=== PATIENT | female | born 1990 | race Caucasian/White ===

== ENCOUNTER → 2017-10-09 15:47 | Outpatient (CLI) | payer OTHER, SELFPAY ==
[2017-10-09 19:55] LABS: Chlamydia Trachomatis by PCR Negative (Negative); Neisserai gonorrhoeae by PCR Negative (Negative); Probe Check PASS; Sample Adequacy Control PASS; Specimen Processing Control PASS
[2017-10-14 13:17] LABS: HPV Reflexed? NOT INDICATED
== END ==
PROVIDERS: Visit Provider Obstetrics & Gynecology
DX: Z12.4 Encounter for screening for malignant neoplasm of cervix (principal); Z11.3 Encounter for screening for infections with a predominantly sexual mode of transmission
CPT/HCPCS: 87491; 87591; 88175; G0145

== ENCOUNTER → 2018-09-05 15:50 | Outpatient (CLI) | payer SELFPAY ==
[2018-09-05 17:35] LABS: Absolute Lymphocyte Count 2.38 X10^3/ul (0.83-4.51); Absolute Neutrophil Count 4.9 X10^3/uL (2.0-7.7); Basophil# 0.02 X10^3/uL; Basophil% 0.2 % (0-1); Eosinophil# 0.13 X10^3/uL; Eosinophils% 1.6 % (0-5); Hematocrit 40.2 % (37-47); Hemoglobin 13.5 g/dl (12.0-15.0); Lymphocyte # 2.38 X10^3/ul (4.0); Lymphocyte % 29.4 % (19-41); Mean Corp Hgb Conc 33.6 g/gl (32-36); Mean Corpuscular Hgb 28.7 pg (27.0-32.0); Mean Corpuscular Volume 85.4 fL (81-99); Mean Platelet Vol. 10.3 fl (6.2-12.0); Monocyte# 0.63 X10^3/uL; Monocyte% 7.8 % (0-10); Neutrophil # 4.92 X10^3/uL (2.7-7.7); Neutrophil % 60.8 % (47-70); Platelet Count 341 K/mm3 (150-450); Red Blood Count 4.71 M/mm3 (4.2-5.4); White Blood Count 8.1 K/mm3 (4.4-11.0)
[2018-09-05 17:39] LABS: POSITIVE COUNT NO; POSITIVE DIFFERENTIAL NO; POSITIVE MORPHOLOGY NO
[2018-09-05 17:54] LABS: ALB/GLOB Ratio 0.9 RATIO (0.9-2.4); AST(SGOT) 32 U/L (15-37); Alanine Aminotransfer ALT/SGPT 32 U/L (13-56); Albumin, Serum 3.7 g/dL (3.2-5.0); Alkaline Phosphatase 83 U/L (45-117); Anion Gap 8 (5-15); BUN 9 mg/dL (7-18); BUN/Creat Ratio 11.2 RATIO (10-20); Calcium,Total 8.7 mg/dL (8.5-10.1); Chloride 107 mmol/L (98-107); EST Glomerular Filtration Rate 91 mL/min (>60); Est Glom Filt Rate - Afr Amer 110 mL/min (>60); Globulin 3.9 g/dL (2.2-4.2); Glucose 94 mg/dL (74-106); Potassium 3.7 mmol/L (3.5-5.1); Protein, Total 7.6 g/dL (6.4-8.2); Sodium Level 142 mmol/L (136-145); Thyroid Stim Hormone (TSH) 1.69 uIU/mL (0.358-3.74)
[2018-09-09 14:04] LABS: Anti-Thyroglobulin AB < 1.0 IU/mL (0.0-0.9); Thyroglobulin, Serum Qt. 32.6 ng/mL (1.5-38.5); Thyroid Peroxidase AB 12 IU/mL (0-34); V-Zoster Virus Acute IgM < 0.91 index (0.00-0.90)
== END ==
PROVIDERS: Family Provider Family Medicine; PCP Family Medicine; Referring Provider Family Medicine; Visit Provider Family Medicine
DX: Z00.00 Encounter for general adult medical examination without abnormal findings (principal); E01.0 Iodine-deficiency related diffuse (endemic) goiter; E66.01 Morbid (severe) obesity due to excess calories
CPT/HCPCS: 36415; 80053; 84432; 84439; 84443; 85025; 86376; 86787; 86800

== ENCOUNTER → 2018-09-10 14:13 | Outpatient (CLI) | payer SELFPAY ==
--- NOTE | 2018-09-10 14:15 | US_ITS ---
STUDY: THYROID ULTRASOUND REASON FOR EXAM: Female, 27 years old. Thyromegaly TECHNIQUE: Ultrasound evaluation of the thyroid was performed with real-time and static lu-scale imaging. COMPARISON: None. FINDINGS: RIGHT LOBE: Right thyroid 45 x 19 x 15 mm, homogeneous echotexture, normal size, normal vascularity, no nodules. LEFT LOBE: Left thyroid 44 x 16 x 14 mm, homogeneous echotexture, normal size, normal vascularity, no nodules. ISTHMUS: The isthmus is normal. US/Thyroid IMPRESSION: Normal ultrasound examination of the thyroid. Electronically Signed: Jerel Brenner MD at 15:41 EDT Tel , Service support ,
== END ==
PROVIDERS: Family Provider Family Medicine; PCP Family Medicine; Referring Provider Family Medicine; Visit Provider Family Medicine
DX: Z00.00 Encounter for general adult medical examination without abnormal findings (principal); E01.0 Iodine-deficiency related diffuse (endemic) goiter
CPT/HCPCS: 76536

== ENCOUNTER → 2018-11-16 13:46 | Outpatient (CLI) | payer SELFPAY ==
[2018-11-21 12:15] LABS: HPV Reflexed? NOT INDICATED
== END ==
PROVIDERS: Visit Provider Obstetrics & Gynecology
DX: Z12.4 Encounter for screening for malignant neoplasm of cervix (principal)
CPT/HCPCS: 87624; 88175; G0145

== ENCOUNTER 2021-05-06 11:50 | Outpatient (CLI) | payer BC, SELFPAY ==
[2021-05-06 12:25] LABS: Hemoglobin A1c 5.4 % (3.8-5.6)
[2021-05-06 14:00] LABS: Estradiol 102.3 pg/mL; Follicle Stimulating Hormone 2.8 mIU/mL; Luteinizing Hormone 5.9 mIU/mL; Prolactin 13.9 ng/mL; T4 Free Direct 1.04 ng/dL (0.76-1.46); Thyroid Stim Hormone (TSH) 2.57 uIU/mL (0.358-3.74)
[2021-05-09 13:34] LABS: Testosterone Free 5.5 pg/mL (0.0-4.2)
[2021-05-10 20:20] LABS: HPV Reflexed? NOT INDICATED
[2021-05-12 17:53] LABS: 17-Hydroxyprogesterone 151 ng/dL (.)
== END 2021-05-06 23:59 | disposition home or self-care (01) ==
LOC: WOBLAB 11:51
PROVIDERS: Visit Provider Student in an Organized Health Care Education/Training Program
DX: Z12.4 Encounter for screening for malignant neoplasm of cervix (principal); N92.6 Irregular menstruation, unspecified
CPT/HCPCS: 36415; 82627; 82670; 83001; 83002; 83036; 83498; 84146; 84402; 84439; 84443; 88175; 82626; G0145

== ENCOUNTER → 2021-09-20 | Outpatient (CLI) | payer BC, SELFPAY ==
[2021-09-27 12:08] LABS: Testosterone, Free 1.58 ng/dL (0.10-0.85); Testosterone, Total 45 ng/dL (13-71)
[2021-09-28 14:17] LABS: Testosterone, % Free 3.52 % (0.50-2.80)
== END | disposition home or self-care (01) ==
LOC: WOBLAB 15:05
PROVIDERS: Visit Provider Student in an Organized Health Care Education/Training Program
DX: R87.1 Abnormal level of hormones in specimens from female genital organs (principal); N92.6 Irregular menstruation, unspecified
CPT/HCPCS: 36415; 84402; 84403

== ENCOUNTER → 2023-03-09 | Outpatient (CLI) | payer OTHER, SELFPAY ==
--- OUTSIDE RECORDS SUMMARY | 2023-03-09 08:46 | XMS RPT_ITS | CCD ---
Author Name Unknown Address [address] [place] [address] Organization [facility] Care Team Providers Care Educational Institution Curator Name Role Phone Unavailable Primary Care Provider UnavailGEORGETTE Parmar Attending Unavailable GAIL, GEORGETTE Referring Unavailable GEORGETTE CARVER Referring Unavailable GEORGETTE CARVER Attending Unavailable Problems Problem Classification Problem Date Documented Da te Episodic/Chronic Menstrual disorders (3 sources) Irregular periods; Translations: [Irregular menstruation, unspecified] Onset: 01-20-2023 01-20-2023 Chronic Other screening for suspected conditions (not mental disorders or infectious disease) (2 sources) Cancer cervix screening status; Translations: [Encounter for screening for malignant neoplasm of cervix] 01-20-2023 Episodic Results Test Name Value Interpretation Reference Range Facil ity Vital Signs Date Time Vital Sign Value Performing Clinician Traci maria 01-20-2023 07:13-0500 Body height 162.6 cm Georgette Carver APRN.CNP Work Phone: [facility] 01-20-2023 07:13-0500 Body weight 118.84 kg Georgette Carver APRN.CNP Work Phone: [facility] 01-20-2023 07:13-0500 Diastolic blood pressure 80 mm[Hg] Georgette Carver APRN.CNP Work Phone: [facility] 01-20-2023 07:13-0500 Systolic blood pressure 122 mm[Hg] Georgette Carver APRN.CNP Work Phone: [facility] Encounters Encounter Date Encounter Type Care Provider Facility Start: 02-23-2023 End: 02-23-2023 ambulatory GEORGETTE CARVER Facility:[facility] Start: 02-01-2023 Telephone encounter Georgette musa APRN.CNP Work Phone: OB/Gynecology Start: 01-23-2023 Telephone encounter Georgette musa APRN.CNP Work Phone: OB/Gynecology Start: 01-20-2023 End: 01-21-2023 ambulatory GEORGETTE CARVER Facility:[facility] Start: 01-20-2023 End: 01-20-2023 ambulatory GEORGETTE CARVER Facility:[facility] Start: 01-20-2023 End: 01-20-2023 Subsequent hospital visit by physician [facility] Work Phone: Radiology Procedures Date Procedure Procedure Detail Performing Clinician Start: 01-20-2023 Iadna human papillom avirus high-risk types Georgette Carver APRN.CNP Work Phone: Plan of Treatment Date Care Activity Detail Author Start: 01-21-2028 HPV Testing HPV Testing [facility] Start: 01-21-2028 Pap Testing Pap Testing [facility] Start: 09-11-2023 Urine microalbumin profile DTaP,Tdap,Td Vaccine (3 - Td or Tdap) [facility] Start: 01-20-2023 End: 04-21-2023 Choriogonadotropin.beta subunit [Units/volume] in Serum or Plasma [facility] Work Phone: Payers Date Payer Category Payer Unknown MMO [employer] PPO [id number] 2022-Present [phone] [address] [place] [address] PPO [id number] 2022 Unknown [id number] Social History Date Type Detail Facility Start: 01-20-2023 Tobacco smoking stat us WIIS Never smoked tobacco [facility] Start: 01-20-2023 Tobacco use and exposure Smoke less tobacco non-user [facility] Start: 01-20-2023 Alcohol intake Ex-drinker (finding) [facility] Start: 01-20-2023 History of Social function [facility] Start: 01-20-2023 Tobacco use panel [facility] Start: 1990 Sex Assigned At Female [facility] Start: 01-16-2023 Gender identity Identifies as female gender (finding) [facility] Start: 01-16-2023 Sexual orientation Heterosexual (prema mcdaniel) [facility] Clinical Notes 01-20-2023 to 02-23-2023 Telephone Encounter - Georgette Carver APRN.CNP - 02/01/2023 3:49 PM ESTTelephone Encounter - Ban Ford RN - 02/01/2023 2:19 PM Saba Toth RDMS - 01/20/2023 8:30 AM EST Note Date & Type Note Facility 02-23-2023 Note HNO ID: [id number] Author: Georgette Carver APRN.BUSINESS RISK ANALYST Service: ? Author Type: Nurse Practitioner Type: Progress Notes Filed: 02/23/2023 7:49 AM Note Text: Kaylan Bradley is a 32 year old female who presents for problem visit of irregular cycles/PCOS. HPI: Was seen for annual on 01/20/23, where she reported irregular cycles. Cycles are every 2-3 months. LMP was 11/07/22. Labs show elevated testosterone. Patient reports facial hair growth. No polycystic ovaries on ultrasound. Patient desires . OB History T0 L0 SAB0 IAB0 Ectopic0 Multiple0 Live Births0 Plaster Helper History LMP: 11/07/2022, Having periods Age at Menarche: Age at First : Age at Menopause: Plaster Helper History Comments: Sexual Activity: No sexual activity data on record; No partner data on record Contraception: No contraception data on record Menstrual Tracking History Flowsheet Row Office Visit from 01/20/2023 in OB/Gynecology Period Pattern Irregular Menstrual Flow Heavy PAST MEDICAL HISTORY Diagnosis Date Irregular periods PAST SURGICAL HISTORY Procedure Laterality Date NONE FAMILY HISTORY Problem Relation Age of Onset Lung Cancer Paternal Grandfather Social History Tobacco Use Smoking status: Never Smokeless tobacco: Never Vaping Use Vaping Use: Never used Substance Use Topics Alcohol use: Not Currently Drug use: Never No current outpatient medications on file. No current facility-administered medications for this visit. Allergies As of Date: 02/23/2023 (No Known Allergies) Fully Assessed 02/23/2023 REVIEW OF SYSTEMS Abdomen: No bloating, early satiety, indigestion, or increased flatulence. No abdominal pain, nausea, vomiting, diarrhea, or constipation. Bladder: No dysuria, gross hematuria, urinary frequency, urinary urgency, or incontinence. Breast: No breast lumps, nipple d/c, overlying skin changes, redness or skin retraction. Expanded ROS: N/A Allergies and current medication updated:Yes EXAM: BP 122/78 Wt 260 lb (117.9kg) LMP 11/07/2022 GENERAL: pleasant, female in no apparent distress HEENT: Normocephalic, atraumatic, mucus membranes moist, and no lesions CHEST: Normal inspiratory effort NEURO: alert and oriented x3,exam grossly non-focal EXTREMITIES: normal ASSESSMENT AND PLAN: 1. PCOS (polycystic ovarian syndrome) - ICD9: 256.4, ICD10: E28.2 (primary diagnosis) - Meets infrequent ovulation and hyperandrogenism for Rotterdam's criteria - Reviewed increased risk of obesity, high cholesterol, high blood pressure, diabetes - Discussed even 5-10% weight loss can improve cycle regulation and typically first line - Consider follow up with Radha Butler or Dr. Davalos for weight management - Has been having unprotected intercourse x7 years with no - Trial of Provera for cycle initiation (reviewed risks of amenorrhea and potential of hyperplasia) - Patient agreeable. Discussed withdrawal bleed would be cycle day 1 - Can trial home ovulation predictor kits to assist in timing of intercourse - Consider semen analysis for partner, to notify if they want to proceed - Follow up in 2 months for fertility follow up/cycle control - Consider letrozole 2. Irregular periods/menstrual cycles - ICD9: 626.4, ICD10: N92.6 - Provera rx to initiate cycles Georgette Carver APRN.CNP Medical Decision Making: Problems: Moderate: 2+ stable chronic illnesses Data: Unique test result(s) reviewed: 3+ Risk: Low: Low risk from testing/treatment Moderate: Drug management Medical Decision Making Level: 4 - Moderate [facility] 02-01-2023 Miscellaneous Notes Signed. Georgette Carver APRN.CNP Spoke with lab client services and hpv can be added once order is filed. Pending. Ban Ford, RN documented in this encounter [facility] 01-23-2023 Miscellaneous Notes Patient notified. Appointment scheduled. Karley Ann RN Just noticed she already had pelvic ultrasound. WNL. Recommend following up to discuss PCOS and plan moving forward. Please notify patient: Testosterone levels elevated. Diagnosis likely PCOS. Recommend pelvic ultrasound - please assist patient in scheduling. Also recommend follow up appointment to discuss PCOS and treatment options moving forward. Please assist in scheduling. Georgette Carver APRN.CNP documented in this encounter [facility] 01-20-2023 Note HNO ID: [id number] Author: Saba Mills RDMS Service: ? Author Type: Fire Alarm Installer Type: Progress Notes Filed: 01/20/2023 2:42 PM Note Text: Radiology Service Progress Note PATIENT NAME: Kaylan Bradley DATE OF SERVICE: January 20, 2023 TIME: 2:42 PM PATIENT IDENTITY VERIFICATION COMPLETED USING TWO (2) IDENTIFIERS: Name and Date of confirmed by patient verbally. FALL SCREENING: Has the patient had 2 falls in the last year or 1 fall with injury or currently using an Ambulatory Assistive Device (Walker, Cane, Wheelchair, Crutches, etc.)? No PATIENT GENDER DATA: Female. status: : No status: NO. PATIENT RELEVANT IMPLANT DATA REVIEWED: Not Applicable RADIOLOGY DEPARTMENT: Ultrasound PERIPHERAL IV DATA: Not applicable SIGNED BY: Saba Mills RDMS T January 20, 2023 2:42 PM [facility] 01-20-2023 Note HNO ID: [id number] Author: Haury, Georgette, ROVING TELLER.BUSINESS RISK ANALYST Service: ? Author Type: Nurse Practitioner Type: Progress Notes Filed: 01/20/2023 7:41 AM Note Text: Smoke Tester offered: Patient declinesJorge Kimbrough is a 32 year old who presents for an annual gynecologic exam with complaints, irregular bleeding for 5 years. Menses: cycles every 2-3 months for 4-5 days. One day of heavy bleeding where she is soaking a tampon every 2 hours. Contraception: none, has previously used OCP and Depo. Not preventing , but not planning HPV vaccine: No Last Pap: normal 2020, [place]. Not on file. HPV: negative . Not on file. History of abnormal pap: No Last mammogram: never Sexually active: Yes History of STDS: None Pain with intercourse: No Postcoital bleeding: No OB History T0 L0 SAB0 IAB0 Ectopic0 Multiple0 Live Births0 Plaster Helper History LMP: LMP Unknown, Having periods Age at Menarche: Age at First : Age at Menopause: Plaster Helper History Comments: Sexual Activity: No sexual activity data on record; No partner data on record Contraception: No contraception data on record Menstrual Tracking History Flowsheet Row Office Visit from 01/20/2023 in OB/Gynecology Period Pattern Irregular Menstrual Flow Heavy PAST MEDICAL HISTORY Diagnosis Date Irregular periods PAST SURGICAL HISTORY Procedure Laterality Date NONE FAMILY HISTORY Problem Relation Age of Onset Lung Cancer Paternal Grandfather SOCIAL HISTORY Social History Tobacco Use Smoking status: Never Smokeless tobacco: Never Vaping Use Vaping Use: Never used Substance Use Topics Alcohol use: Not Currently Drug use: Never REVIEW OF SYSTEMS Abdomen: No abdominal pain, nausea, vomiting, diarrhea, or constipation. No bloating, early satiety, indigestion, or increased flatulence. Bladder: No dysuria, gross hematuria, urinary frequency, urinary urgency, or incontinence. Breast: No breast lumps, nipple d/c, overlying skin changes, redness or skin retraction. Allergies and current medication updated:Yes EXAM: BP 122/80 Ht 5' 4 (1.63m) Wt 262 lb (118.8kg) BMI 44.95 kg/(m2). GENERAL: pleasant, female in no apparent distress HEENT: Normocephalic, atraumatic, mucus membranes moist, and no lesions NECK: Supple, full range of motion, no adenopathy, and thyroid normal DERMATOLOGY: Normal, without lesions, non-icteric, and non-hirsute BREAST: soft, non-tender, symmetric, no dominant mass, normal nipple-areolar complex, no lymphadenopathy, and no nipple discharge + left nipple flat/inverted. Has always been flat/inverted per patient. CHEST: Normal inspiratory effort ABDOMEN: soft, non-tender, and no masses PELVIC: external genitalia normal, normal Bartholin's glands, urethra, [place]'s glands, no vulvar lesions, no cervical lesions, good vaginal support, physiologic discharge present, normal appearing perineal body and perianal region BIMANUAL: uterus normal size, shape and consistency, no adnexal masses, and non-tender RECTOVAGINAL: deferred. NEURO: alert and oriented x3,exam grossly non-focal EXTREMITIES: normal ASSESSMENT/PLAN: 1) Health maintenance: Pap done with HPV. Nutrition, exercise and routine health maintenance exams reviewed. 2) Contraception: none. Not preventing , but not actively trying. vitamin with 800 mcg of folic acid recommended. 3) STD screening: Declined STD check. 4) Follow up one year or sooner as needed 4. Irregular menstrual bleeding - ICD9: 626.4, ICD10: N92.6 - 5 years of spaced out menses - Labs and pelvic ultrasound ordered - TESTOSTERONE TOTAL - HGB A1C - PROLACTIN BLD - TSH BLD - T4 FREE/FREE THYROX - FSH BLD - ESTRADIOL-17B BLD - US FEMALE PELVIS TRANSVAG - HCG QUANTITATIVE - To notify with results. Plan for follow up based on results. - Will likely need hormonal control to regulate menses Georgette Carver APRN.BUSINESS RISK ANALYST Medical Decision Making: Problems: Moderate: 2+ stable chronic illnesses Data: Unique test(s) ordered: 3+ Risk: Minimal: Minimal risk from testing/treatment Medical Decision Making Level: 4 - Moderate [facility] 01-20-2023 History of Presen t illness Narrative Radiology Service Progress Note PATIENT NAME: Kaylan Bradley DATE OF SERVICE: January 20, 2023 TIME: 2:42 PM PATIENT IDENTITY VERIFICATION COMPLETED USING TWO (2) IDENTIFIERS: Name and Date of confirmed by patient verbally. FALL SCREENING: Has the patient had 2 falls in the last year or 1 fall with injury or currently using an Ambulatory Assistive Device (Walker, Cane, Wheelchair, Crutches, etc.)? No PATIENT GENDER DATA: Female. status: : No status: NO. PATIENT RELEVANT IMPLANT DATA REVIEWED: Not Applicable RADIOLOGY DEPARTMENT: Ultrasound PERIPHERAL IV DATA: Not applicable SIGNED BY: Saba Mills RDMS RVT January 20, 2023 2:42 PM documented in this encounter [facility] 01-20-2023 History of Presen t illness Narrative Smoke Tester offered: Patient declines. Kaylan is a 32 year old who presents for an annual gynecologic exam with complaints, irregular bleeding for 5 years. Menses: cycles every 2-3 months for 4-5 days. One day of heavy bleeding where she is soaking a tampon every 2 hours. Contraception: none, has previously used OCP and Depo. Not preventing , but not planning HPV vaccine: No Last Pap: normal 2020, [place]. Not on file. HPV: negative . Not on file. History of abnormal pap: No Last mammogram: never Sexually active: Yes History of STDS: None Pain with intercourse: No Postcoital bleeding: No OB History T0 L0 SAB0 IAB0 Ectopic0 Multiple0 Live Births0 Plaster Helper History LMP: LMP Unknown, Having periods Age at Menarche: Age at First : Age at Menopause: Plaster Helper History Comments: Sexual Activity: No sexual activity data on record; No partner data on record Contraception: No contraception data on record Menstrual Tracking History Flowsheet Row Office Visit from 01/20/2023 in OB/Gynecology Period Pattern Irregular Menstrual Flow Heavy PAST MEDICAL HISTORY Diagnosis Date Irregular periods PAST SURGICAL HISTORY Procedure Laterality Date NONE FAMILY HISTORY Problem Relation Age of Onset Lung Cancer Paternal Grandfather SOCIAL HISTORY Social History Tobacco Use Smoking status: Never Smokeless tobacco: Never Vaping Use Vaping Use: Never used Substance Use Topics Alcohol use: Not Currently Drug use: Never REVIEW OF SYSTEMS Abdomen: No abdominal pain, nausea, vomiting, diarrhea, or constipation. No bloating, early satiety, indigestion, or increased flatulence. Bladder: No dysuria, gross hematuria, urinary frequency, urinary urgency, or incontinence. Breast: No breast lumps, nipple d/c, overlying skin changes, redness or skin retraction. Allergies and current medication updated:Yes EXAM: BP 122/80 Ht 5' 4 (1.63m) Wt 262 lb (118.8kg) BMI 44.95 kg/(m^2). GENERAL: pleasant, female in no apparent distress HEENT: Normocephalic, atraumatic, mucus membranes moist, and no lesions NECK: Supple, full range of motion, no adenopathy, and thyroid normal DERMATOLOGY: Normal, without lesions, non-icteric, and non-hirsute BREAST: soft, non-tender, symmetric, no dominant mass, normal nipple-areolar complex, no lymphadenopathy, and no nipple discharge + left nipple flat/inverted. Has always been flat/inverted per patient. CHEST: Normal inspiratory effort ABDOMEN: soft, non-tender, and no masses PELVIC: external genitalia normal, normal Bartholin's glands, urethra, [place]'s glands, no vulvar lesions, no cervical lesions, good vaginal support, physiologic discharge present, normal appearing perineal body and perianal region BIMANUAL: uterus normal size, shape and consistency, no adnexal masses, and non-tender RECTOVAGINAL: deferred. NEURO: alert and oriented x3,exam grossly non-focal EXTREMITIES: normal ASSESSMENT/PLAN: 1) Health maintenance: Pap done with HPV. Nutrition, exercise and routine health maintenance exams reviewed. 2) Contraception: none. Not preventing , but not actively trying. vitamin with 800 mcg of folic acid recommended. 3) STD screening: Declined STD check. 4) Follow up one year or sooner as needed 4. Irregular menstrual bleeding - ICD9: 626.4, ICD10: N92.6 - 5 years of spaced out menses - Labs and pelvic ultrasound ordered - TESTOSTERONE TOTAL - HGB A1C - PROLACTIN BLD - TSH BLD - T4 FREE/FREE THYROX - FSH BLD - ESTRADIOL-17B BLD - US FEMALE PELVIS TRANSVAG - HCG QUANTITATIVE - To notify with results. Plan for follow up based on results. - Will likely need hormonal control to regulate menses Georgette Carver APRN.BUSINESS RISK ANALYST Medical Decision Making: Problems: Moderate: 2+ stable chronic illnesses Data: Unique test(s) ordered: 3+ Risk: Minimal: Minimal risk from testing/treatment Medical Decision Making Level: 4 - Moderate documented in this encounter [facility] documented [facility] Diagnosis Irregular menstrual bleeding Irregular menstrual cycle [facility] Diagnosis Cervical cancer screening- Primary Screening for malignant neoplasm of the cervix documented [facility] Diagnostic Procedure Only (Routine) - Closed Specialty Diagnoses / Procedures Referred By Contcindy chen Referred To Contact US IMAGING Diagnoses Irregular menstrual bleeding Procedures US FEMALE PELVIS TRANSVAG US TRANSVAGINAL Georgette Carver APRN.CNP [address] [place] [address] [place] [address] Referral ID Status Reason Start Date Expiration Date V isits Requested Visits Authorized [id number] Closed Auto-Generate d Referral 01/20/2023 02/19/2024 1 1 [facility] Summary Purpose Family History No Family History Records Found Advance Directives No Advanced Directives Records Found Additional Source Comments Source Comments (unrecognize d section and content) In the event this informatio n is protected by the Federal Confidentiality of Alcohol and Drug Abuse Patient Records regulations: The Federal rules restrict any use of the information to criminally investigate or prosecute any alcohol or drug abuse patient.[facility] the event this information is protected by the Federal Confidentiality of Alcohol and Drug Abuse Patient Records regulations: The Federal rules restrict any use of the information to criminally investigate or prosecute any alcohol or drug abuse patient.[facility] the event this information is protected by the Federal Confidentiality of Alcohol and Drug Abuse Patient Records regulations: The Federal rules restrict any use of the information to criminally investigate or prosecute any alcohol or drug abuse patient.[facility] the event this information is protected by the Federal Confidentiality of Alcohol and Drug Abuse Patient Records regulations: The Federal rules restrict any use of the information to criminally investigate or prosecute any alcohol or drug abuse patient.[facility] the event this information is protected by the Federal Confidentiality of Alcohol and Drug Abuse Patient Records regulations: The Federal rules restrict any use of the information to criminally investigate or prosecute any alcohol or drug abuse patient.[facility] Reason for Visit (unrecogniz ed section and content) Reason Comments Radiology US Specialty Diagnoses / Procedures Referred By Contac t Referred To Contact US IMAGING Diagnoses Irregular menstrual bleeding Procedures US FEMALE PELVIS TRANSVAG US TRANSVAGINAL Haury, Georgette, ROVING TELLER.BUSINESS RISK ANALYST [address] [place] [address] [facility] [address] Referral ID Status Reason Start Date Expiration Date V isits Requested Visits Authorized [id number] Closed Auto-Generate d Referral 01/20/2023 02/19/2024 1 1 INFORMATION SOURCE (unrecogn ized section and content) FOR RECORDS PERTAINING TO PATIENTS WHO ARE OR HAVE BEEN ENROLLED IN A CHEMICAL DEPENDENCY/SUBSTANCEABUSE PROGRAM, SOME INFORMATION MAY BE OMITTED. This clinical summary was aggregated from multiple sources. Caution should be exercised in using it in the provision of clinical care. This summary normalizes information from multiple sources, and as a consequence, information in this document may materially change the coding, format and clinical context of patient data. In addition, data may be omitted in some cases. CLINICAL DECISIONS SHOULD BE BASED ON THE PRIMARY CLINICAL RECORDS. [facility] [employer] [facility]. provides no warranty or guarantee of the accuracy or completeness of information in this document.
[2023-03-09 10:12] LABS: Absolute Lymphocyte Count 2.02 X10^3/uL (0.83-4.51); Absolute Neutrophil Count 3.6 X10^3/uL (2.0-7.7); Basophil# 0.05 X10^3/uL; Basophil% 0.8 % (0-1); Eosinophil# 0.14 X10^3/uL; Eosinophils% 2.2 % (0-5); Hematocrit 41.1 % (37-47); Hemoglobin 13.2 g/dL (12.0-15.0); Lymphocyte # 2.02 X10^3/ul (0.83-4.51); Lymphocyte % 31.1 % (19-41); Mean Corp Hgb Conc 32.1 g/dL (32-36); Mean Corpuscular Hgb 28.6 pg (27.0-32.0); Mean Corpuscular Volume 89.2 fL (81-99); Mean Platelet Vol. 10.1 fl (6.2-12.0); Monocyte# 0.61 X10^3/uL; Monocyte% 9.4 % (0-10); NRBC Flagged by Analyzer 0 % (0-5); Neutrophil # 3.63 X10^3/uL (2.7-7.7); Neutrophil % 55.7 % (47-70); Platelet Count 336 K/mm3 (150-450); RBC Distribution Width SD 45.4 fl (35.1-43.9); Red Blood Count 4.61 M/mm3 (4.2-5.4); White Blood Count 6.5 K/mm3 (4.4-11.0)
[2023-03-09 10:40] LABS: AST(SGOT) 32 U/L (15-37); Alanine Aminotransfer ALT/SGPT 32 U/L (13-56); Albumin, Serum 3.5 g/dL (3.2-5.0); Alkaline Phosphatase 69 U/L (45-117); Anion Gap 6 (5-15); BUN 14 mg/dL (7-18); BUN/Creat Ratio 16.6 RATIO (10-20); Chloride 110 mmol/L (98-107); Cholesterol 171 mg/dL (200); Creatinine, Serum 0.84 mg/dL (0.55-1.02); EST Glomerular Filtration Rate 84 mL/min (>60); Est Glom Filt Rate - Afr Amer 101 mL/min (>60); Globulin 3.6 g/dL (2.2-4.2); Glucose 103 mg/dL (74-106); High Density Lipoprotein 41 mg/dL; Protein, Total 7.1 g/dL (6.4-8.2); Sodium Level 141 mmol/L (136-145); Thyroid Stim Hormone (TSH) 1.88 uIU/mL (0.358-3.74); Triglycerides 92 mg/dL; Very Low Density Lipoprotein 18 mg/dL (5-40)
== END | disposition home or self-care (01) ==
LOC: MFPLAB 08:41
PROVIDERS: PCP Family Medicine; Visit Provider Family Medicine
DX: E66.01 Morbid (severe) obesity due to excess calories (principal)
CPT/HCPCS: 36415; 80053; 80061; 84443; 85025